=== PATIENT | female | born 2000 | race Hispanic/Latino ===

== ENCOUNTER 2022-09-11 19:41 | Emergency (ER) | payer MEDICAID ==
[~2022-09-11] VITALS: Ht 165.1 cm; Wt 90.7 kg
[2022-09-11 19:57] LABS: BASOPHILS % (AUTO) 0.4 % (0.0-5.0); HEMATOCRIT 44.4 % (36-48); LYMPHOCYTES % (AUTO) 23.8 % (21.0-51.0); MEAN CORPUSCULAR HEMOGLOBIN 27.3 pg (27.0-33.0); MEAN CORPUSCULAR HGB CONC 31.8 g/dL (32.0-36.0); MEAN CORPUSCULAR VOLUME 85.9 fL (80-100); MONOCYTES % (AUTO) 8.4 % (3.0-13.0); PLATELET COUNT (AUTO) 360 K/uL (130-400); RED BLOOD CELL COUNT(AUTO) 5.17 MIL/uL (4.00-5.50); RED CELL DISTRIBUTION WIDTH 12.7 % (11.0-15.5); WHITE BLOOD COUNT (AUTO) 13.4 K/uL (4.8-10.8)
[2022-09-11] MEDS ORDERED: ONDANSETRON 4MG INJ IVP ONE (20:00)
[2022-09-11] MEDS ORDERED: 0.9%NACL 1000ML 1,000 ML IV SCH (20:00)
[2022-09-11] MEDS ORDERED: MORPHINE 4 MG SYG IVP ONE (20:00)
[2022-09-11 20:06] LABS: CREATININE 0.8 mg/dL (0.5-1.5); POTASSIUM 3.9 mmol/L (3.5-5.1)
[2022-09-11 20:07] LABS: INR 0.93 (0.85-1.15); PROTHROMBIN TIME 10.2 SEC (9.6-11.6)
[2022-09-11 20:08] LABS: PARTIAL THROMBOPLASTIN TIME 26.3 SEC (26.3-35.5)
[2022-09-11 20:11] LABS: ALBUMIN 4.5 g/dL (3.5-5.0); TOTAL PROTEIN, SERUM 8.8 g/dL (6.0-8.3)
[2022-09-11] MEDS ORDERED: LORAZEPAM 2 MG/ML 1 ML VIAL IVP ONE (21:00)
[2022-09-11 21:06] LABS: APPEARANCE,URINE CLEAR (CLEAR); BILIRUBIN,URINE NEGATIVE (NEGATIVE); COLOR,URINE LIGHT-YELLOW (YELLOW); GLUCOSE, URINE (UA) NEGATIVE (NEGATIVE); KETONES,URINE NEGATIVE (NEGATIVE); LEUKOCYTE ESTERASE ,URINE 25 Leu/uL (NEGATIVE); NITRATE,URINE NEGATIVE (NEGATIVE); OCCULT BLOOD,URINE NEGATIVE (NEGATIVE); PROTEIN,URINE 20 mg/dL (NEGATIVE); UROBILINOGEN,URINE 0.2 mg/dL (0.2-1.0)
[2022-09-11 21:11] LABS: BACTERIA,URINE FEW /HPF (None Seen); MUCUS,URINE MOD LPF (None Seen); SQUAMOUS EPITHELIAL CELL,UR FEW /HPF (0-2)
[2022-09-11] MEDS ORDERED: CEFTRIAXONE 2GM VIAL IVPB ONE (22:00)
[2022-09-11] MEDS ORDERED: CYCL10TA16 PO (22:04)
[2022-09-11 23:41] LABS: AMPHET/METH SCREEN,URINE NEGATIVE (NEGATIVE); BARBITURATE SCREEN, URINE NEGATIVE (NEGATIVE); BENZODIAZEPINES SCREEN,URINE NEGATIVE (NEGATIVE); CANNABINOID SCREEN,URINE POSITIVE (NEGATIVE); COCAINE SCREEN,URINE NEGATIVE (NEGATIVE); OPIATE SCREEN,URINE POSITIVE (NEGATIVE); PHENCYCLIDINE SCREEN,URINE NEGATIVE (NEGATIVE)
== END 2022-09-12 01:18 | disposition home or self-care (01) ==
LOC: EDH 19:41
DX: S63.592A Other specified sprain of left wrist, initial encounter (principal); S00.03XA Contusion of scalp, initial encounter; F17.200 Nicotine dependence, unspecified, uncomplicated; Z20.822 Contact with and (suspected) exposure to COVID-19; V49.88XA Car occupant (driver) (passenger) injured in other specified transport accidents, initial encounter; Y93.89 Activity, other specified; Y92.89 Other specified places as the place of occurrence of the external cause; Y99.8 Other external cause status
CPT/HCPCS: 99285; 70450; 96361; 96374; 71045; 96375; 87635; 80053; 80305; 84703; 85025; 85610; 85730; 86850; 86900; 86901; 36415; 73100; 73070; 73090; 73030; 72170; 72125; 81001; C9803; J7030 ×2; J2405; J2060; J2270